=== PATIENT | female | born 1980 | race Caucasian/White ===

== ENCOUNTER 2019-01-11 21:55 | Inpatient (IN) | payer OTHER ==
[2019-01-12] MEDS ORDERED: KETOROLAC TROMETHAMINE 60 MG/2 ML SDV IM ONE (00:47)
[2019-01-12] MEDS ORDERED: OXYCODONE-ACETAMINOPHEN 5-325 MG TABLET PO ONE (00:47)
[2019-01-12] MEDS ORDERED: ONDANSETRON 4 MG TAB.RAPDIS PO ONE (00:47)
--- NOTE | 2019-01-12 00:50 | ER Document Report ---
ED Medical Screen (RME) - General Chief Complaint: Abdominal Pain Stated Complaint: ABDOMINAL AND BACK PAIN Time Seen by Provider: 01/12/19 00:44 Primary Care Provider: CLARI WELCH MD [Primary Care Provider] - Follow up as needed Notes: 38-year-old female chief complaint of sharp pain in her upper mid and right abdomen with radiation to the back, she vomited 4 times. Denies fever. Denies any surgeries or diagnosed medical problems. TRAVEL OUTSIDE OF THE [place] IN LAST 30 DAYS: No - Related Data Allergies/Adverse Reactions: No Known Allergies Allergy (Verified 10/18/14 21:08) Past Medical History - Past Medical History Cardiac Medical History: Denies: Hx Coronary Artery Disease, Hx Heart Attack, Hx Hypercholesterolemia, Hx Hypertension Pulmonary Medical History: Denies: Hx Asthma, Hx Bronchitis, Hx COPD, Hx Pneumonia Neurological Medical History: Denies: Hx Cerebrovascular Accident, Hx Migraine, Hx Seizures GI Medical History: Musculoskeltal Medical History: Denies Hx Arthritis, Denies Hx Musculoskeletal Deformity, Denies Hx Musculoskeletal Trauma Infectious Medical History: Past Surgical History: Denies: Hx Pacemaker - Immunizations Immunizations up to date: Yes Hx Diphtheria, Pertussis, Tetanus Vaccination: Yes Physical Exam - Vital signs Vitals: Temp Pulse Resp BP Pulse Ox 98.3 F 105 H 20 143/82 H 100 01/11/19 22:44 01/11/19 22:44 01/11/19 22:44 01/11/19 22:44 01/11/19 22:44 - Abdominal Tenderness: Tender - Positive Mattson sign, pain extends to the epigastric area, lower abdomen benign Course - Re-evaluation Re-evalutation: Patient uncomfortable in appearance, very tender in the epigastric and right upper quadrant, patient will be kept n.p.o., medicated, work-up pending. I have greeted and performed a rapid initial assessment of this patient. A comprehensive ED assessment and evaluation of the patient, analysis of test results and completion of the medical decision making process will be conducted by additional ED providers. - Vital Signs Vital signs: Temp Pulse Resp BP Pulse Ox 98.3 F 105 H 20 143/82 H 100 01/11/19 22:44 01/11/19 22:44 01/11/19 22:44 01/11/19 22:44 01/11/19 22:44 Doctor's Discharge - Discharge Referrals: CLARI WELCH MD [Primary Care Provider] - Follow up as needed
[2019-01-12 01:51] LABS: ABSOLUTE BASOPHILS # (AUTO) 0.1 10^3/uL (0.0-0.2); ABSOLUTE LYMPHOCYTES (AUTO) 2.4 10^3/uL (0.5-4.7); ABSOLUTE MONOCYTES (AUTO) 0.6 10^3/uL (0.1-1.4); ABSOLUTE NEUT (AUTO) 8.9 10^3/uL (1.7-8.2); BASOPHILS % (AUTO) 0.9 % (0-2); EOSINOPHILS % (AUTO) 0.3 % (0-6); HEMATOCRIT 26.5 % (36.0-47.0); LYMPHOCYTES % (AUTO) 19.8 % (13-45); MEAN CORPUSCULAR HGB CONC 29.7 g/dL (32.0-36.0); MEAN CORPUSCULAR VOLUME 61 fl (80-97); MONOCYTES % (AUTO) 5.4 % (3-13); PLATELET COUNT 375 10^3/uL (150-450); RED BLOOD COUNT 4.38 10^6/uL (3.72-5.28); RED CELL DISTRIBUTION WIDTH 19.9 % (11.5-14.0); SEGMENTED NEUTROPHILS % (AUTO) 73.6 % (42-78); TOTAL CELLS COUNTED % (AUTO) 100 %
[2019-01-12 02:00] LABS: ALANINE AMINOTRANSFERASE 20 U/L (9-52); ALBUMIN 4.8 g/dL (3.5-5.0); ALKALINE PHOSPHATASE 43 U/L (38-126); ANION GAP 12 (5-19); ASPARTATE AMINO TRANSFERASE 24 U/L (14-36); BILIRUBIN,DIRECT 0.2 mg/dL (0.0-0.4); BILIRUBIN,TOTAL 0.5 mg/dL (0.2-1.3); BLOOD UREA NITROGEN 17 mg/dL (7-20); CALCIUM 9.3 mg/dL (8.4-10.2); CARBON DIOXIDE 20 mmol/L (22-30); CHLORIDE 108 mmol/L (98-107); GLUCOSE 119 mg/dL (75-110); POTASSIUM 4.2 mmol/L (3.6-5.0); TOTAL PROTEIN 7.8 g/dL (6.3-8.2)
[2019-01-12 02:12] LABS: HEMOGLOBIN 7.9 g/dL (12.0-15.5)
--- NOTE | 2019-01-12 02:14 | RADIOLOGY REPORT (SQ) ---
CLINICAL HISTORY: epigastric pain and vomiting COMPARISON: None. TECHNIQUE: US ABDOMEN LIMITED on 01/12/2019 12:48 AM CDT FINDINGS: Liver is normal in echotexture. Common bile measures 3 mm. Gallbladder is normally distended without wall thickening or pericholecystic fluid. There are no gallstones. Right kidney measures 9.7 cm without hydronephrosis aorta is not aneurysmal. IMPRESSION: Unremarkable study.
[2019-01-12 02:15] LABS: ANISOCYTOSIS 2+; OVALOCYTES 1+; PLATELET COMMENT ADEQUATE; POIKILOCYTOSIS 1+; POLYCHROMASIA 1+; SPHEROCYTES SLIGHT
[2019-01-12 02:16] LABS: HYPOCHROMASIA 1+
[2019-01-12] MEDS ORDERED: ONDANSETRON 4 MG TAB.RAPDIS ONE (02:35)
[2019-01-12] MEDS ORDERED: NORMAL SALINE 1000 ML 1,000 ML IV ONE ×2 (02:51→06:47)
[2019-01-12] MEDS ORDERED: ONDANSETRON HCL INJ/PF 4 MG/2 ML SDV IV ONE ×2 (02:51→06:47)
[2019-01-12] MEDS ORDERED: HYDROMORPHONE HCL INJ/PF 2 MG/ML AMPULE IV ONE ×3 (02:51→06:47)
[2019-01-12 02:56] LABS: AMORPHOUS SEDIMENT,URINE 1+ /HPF; APPEARANCE,URINE TURBID; BILIRUBIN,URINE NEGATIVE (NEGATIVE); COLOR,URINE YELLOW; GLUCOSE, URINE NEGATIVE (NEGATIVE); KETONES,URINE 20 mg/dL (NEGATIVE); LEUKOCYTE ESTERASE,URINE NEGATIVE (NEGATIVE); NITRITE,URINE NEGATIVE (NEGATIVE); PROTEIN,URINE 30 mg/dL (NEGATIVE); URINE SPECIFIC GRAVITY 1.029; UROBILINOGEN,URINE NEGATIVE mg/dL (<2.0)
--- NOTE | 2019-01-12 06:06 | RADIOLOGY REPORT (SQ) ---
CT abdomen and pelvis with contrast on 01/12/2019 at 5:38 AM CLINICAL INDICATION: Periumbilical abdominal pain, vomiting TECHNIQUE: Multiple axial images are obtained throughout the abdomen and pelvis following the administration of IV and oral contrast. This exam was performed according to our departmental dose-optimization program, which includes automated exposure control, adjustment of the mA and/or kV according to patient size and/or use of iterative reconstruction technique. Total DLP is 584.56 mGy*cm. COMPARISON: None FINDINGS: Abdomen: There is minimal bibasilar atelectasis. Mild periportal edema is noted in the liver. Left renal cysts are noted. Solid abdominal organs are otherwise unremarkable. There is no abdominal adenopathy. There is no free fluid or free air within the abdomen. The abdominal portion of the GI tract is unremarkable. Pelvis: There is dilated loop of small bowel in the mid pelvis with decompressed distal small bowel suggesting an early or partial small bowel obstruction. Transition point is in the midline deep to the umbilicus seen on coronal image 21 and between axial images 46 and 48. Most likely this is related to an adhesion. There is greater than expected free fluid in the pelvis. Pelvic organs appear unremarkable by CT. There is no pelvic adenopathy pelvic portion of the GI tract including the appendix is otherwise unremarkable. No acute bony abnormality is noted. IMPRESSION: 1. Single dilated loop of small bowel in the mid pelvis with apparent transition to decompressed distal small bowel suggesting an early or partial small bowel obstruction. There is greater than expected free fluid in the pelvis likely related to the same etiology. 2. Mild periportal edema in the liver.
--- NOTE | 2019-01-12 06:32 | ER Document Report ---
Entered by BCEKI HERRMANN SCRIBE 01/12/19 0228 Acting as scribe for:HE GONZALEZ DO ED GI/ - General Chief Complaint: Abdominal Pain Stated Complaint: ABDOMINAL AND BACK PAIN Time Seen by Provider: 01/12/19 00:44 Primary Care Provider: CLARI WELCH MD [ACTIVE STAFF] - Follow up as needed Mode of Arrival: Ambulatory Information source: Patient Notes: 38-year-old female who presents to the emergency department today with complaints of abdominal pain with associated right flank pain which began this afternoon at 1600. Pain begins in her right flank and radiates all the way around her abdomen to the front. Patient states that her pain began "all of a sudden" when sitting outside. Patient states she has not had any food since her pain began. Patient complains of nausea but has not had any vomiting. Patient denies any vaginal discharge, recent sick contacts with similar symptoms, usage of control, dysuria, history, or chills. Patient states she does have heavy periods, stating that she frequently soaks through more than 1 pad an hour. TRAVEL OUTSIDE OF THE [place] IN LAST 30 DAYS: No - Related Data Allergies/Adverse Reactions: No Known Allergies Allergy (Verified 10/18/14 21:08) Past Medical History - General Information source: Patient - Social History Smoking Status: Never Smoker Cigarette use (# per day): No Chew tobacco use (# tins/day): No Frequency of alcohol use: None Drug Abuse: None Lives with: Family Family History: None Patient has suicidal ideation: No Patient has homicidal ideation: No - Past Medical History Cardiac Medical History: Pulmonary Medical History: Renal/ Medical History: Reports: Other - Endometriosis GI Medical History: Musculoskeletal Medical History: Infectious Medical History: Past Surgical History: Reports: Other - Endometriosis - Immunizations Immunizations up to date: Yes Hx Diphtheria, Pertussis, Tetanus Vaccination: Yes Review of Systems - Review of Systems Constitutional: denies: Chills, Fever EENT: No symptoms reported Cardiovascular: No symptoms reported Respiratory: No symptoms reported Gastrointestinal: See HPI, Abdominal pain, Nausea Genitourinary: See HPI, Flank pain - right. denies: Dysuria Female Genitourinary: denies: Vaginal discharge Musculoskeletal: No symptoms reported Skin: No symptoms reported Hematologic/Lymphatic: No symptoms reported Neurological/Psychological: No symptoms reported -: Yes All other systems reviewed and negative Physical Exam - Vital signs Vitals: Temp Pulse Resp BP Pulse Ox 98.3 F 105 H 20 143/82 H 100 01/11/19 22:44 01/11/19 22:44 01/11/19 22:44 01/11/19 22:44 01/11/19 22:44 Interpretation: Tachycardic - Notes Notes: PHYSICAL EXAM GENERAL: Alert, interacts well. Appears uncomfortable. HEAD: Normocephalic, atraumatic. EYES: Pupils equal, round, and reactive to light. Extraocular movements intact. ENT: Oral mucosa moist, tongue midline. NECK: Full range of motion. Supple. Trachea midline. LUNGS: Clear to auscultation bilaterally, no wheezes, rales, or rhonchi. No respiratory distress. HEART: Regular rate and rhythm. No murmurs, gallops, or rubs. ABDOMEN: Soft, periumbilical tenderness with palpation. Non-distended. Bowel sounds present in all 4 quadrants. No guarding, rigidity, or rebound. BACK: Right CVA tenderness to percussion. EXTREMITIES: Moves all 4 extremities spontaneously. No edema, radial and dorsalis pedis pulses 2/4 bilaterally. No cyanosis. NEUROLOGICAL: Alert and oriented x3. Normal speech. PSYCH: Normal affect, normal mood. SKIN: Warm, dry, normal turgor. No rashes or lesions noted. Course - Re-evaluation Re-evalutation: 01/12/19 05:50 CBC shows leukocytosis with a blood cell count of 12.0, anemia with hemoglobin 7.9, this is markedly different from 4 years ago however I do not have any CBC after that, it is consistent with her history of endometriosis and very heavy periods, CO2 slightly low at 20 otherwise unremarkable, lipase normal, test negative, urinalysis shows small blood but no real signs of infection. Abdominal ultrasound is unremarkable. Given her leukocytosis and persistent pain patient is sent for CT scan of the abdomen and pelvis. Patient's nausea was treated with Zofran, hydrated with a liter of normal saline, pain was treated with Dilaudid 0.5 mg twice. 01/12/19 06:45 CT scan with IV and oral contrast shows early partial SBO, this will be treated with NG tube and was discussed with Dr. Manley who agreed to consult on the patient and then asked that hospitalist admit her. Dr. Jones accepted the patient on behalf of the day team. 01/12/19 06:47 suspect the SBO is related to adhesions from her endometriosis. - Vital Signs Vital signs: Temp Pulse Resp BP Pulse Ox 98.5 F 100 20 99/44 L 100 01/12/19 02:29 01/12/19 02:29 01/12/19 02:29 01/12/19 02:29 01/12/19 02:29 - Laboratory Result Diagrams: 01/12/19 01:25 01/12/19 01:25 Laboratory results interpreted by me: 01/12/19 01/12/19 01/12/19 01:25 01:25 01:25 WBC 12.0 H Hgb 7.9 L Hct 26.5 L MCV 61 L MCH 18.0 L MCHC 29.7 L RDW 19.9 H Absolute Neutrophils 8.9 H Chloride 108 H Carbon Dioxide 20 L Glucose 119 H Urine Protein 30 H Urine Ketones 20 H Urine Blood SMALL H Discharge - Discharge Clinical Impression: Partial small bowel obstruction Condition: Stable Disposition: ADMITTED INPATIENT Admitting Provider: Robert (Hospitalist) Unit Admitted: Medical Floor I personally performed the services described in the documentation, reviewed and edited the documentation which was dictated to the scribe in my presence, and it accurately records my words and actions.
--- NOTE | 2019-01-12 07:38 | PDOC CONSULTATION ---
Consultation Consult Date: 01/12/19 Provider Consulted: SEDRICK MCMANUS Consult reason:: SBO History of Present Illness Admission Date/PCP: 01/12/19 07:09 RAGHAV BESS MD History of Present Illness: SARI PAUL is a 38 year old female with history of endometriosis c/o RUQ pains yesterday at 4 pm associated with nausea/vomiting. Went to ED last night where a CT scan of abdomen showed partial small bowel obstruction. Last BM was 2 pm yesterday. Had 3 laparoscopic procedures for endometriosis with lysis of adhesions per patient and last done 6 years ago. Past Medical History Cardiac Medical History: Denies: Coronary Artery Disease, Myocardial Infarction, Hyperlipidema, Hypertension Pulmonary Medical History: Denies: Asthma, Bronchitis, Chronic Obstructive Pulmonary Disease (COPD), Pneumonia Neurological Medical History: Denies: Migraine, Seizures Renal/ Medical History: Reports: Other - Endometriosis GI Medical History: Musculoskeltal Medical History: Denies: Arthritis Hematology: Denies: Anemia Past Surgical History Past Surgical History: Reports: Other - Endometriosis Denies: Pacemaker Social History Lives with: Family Smoking Status: Never Smoker Hx Recreational Drug Use: No Family History Family History: None Parental Family History Reviewed: Yes Children Family History Reviewed: No Sibling(s) Family History Reviewed.: No Medication/Allergy Home Medications: Cephalexin Monohydrate [Keflex 250 mg Capsule] 250 mg PO Q8 #30 capsule 10/19/14 Hydrocodone/Acetaminophen [[place] 5-325 mg Tabs #6 ER Disp] 6 tab PO ASDIR PRN #0 dspk 10/19/14 Allergies/Adverse Reactions: No Known Allergies Allergy (Verified 10/18/14 21:08) Review of Systems Constitutional: PRESENT: as per HPI, other - service attendant cafeteria fever/chills. Physical Exam Vital Signs: Temp Pulse Resp BP Pulse Ox 98.5 F 100 20 99/44 L 100 01/12/19 02:29 01/12/19 02:29 01/12/19 02:29 01/12/19 02:29 01/12/19 02:29 Intake & Output 01/11/19 01/12/19 01/13/19 06:59 06:59 06:59 Intake Total 1000 Balance 1000 Weight 58.6 kg General appearance: PRESENT: mild distress Head exam: PRESENT: atraumatic Eye exam: PRESENT: conjunctiva pink Mouth exam: PRESENT: moist Neck exam: PRESENT: full ROM Respiratory exam: PRESENT: clear to auscultation bethany Cardiovascular exam: PRESENT: RRR Pulses: PRESENT: normal radial pulses Vascular exam: PRESENT: normal capillary refill GI/Abdominal exam: PRESENT: soft, tenderness - RUQ Rectal exam: PRESENT: deferred Extremities exam: PRESENT: full ROM Musculoskeletal exam: PRESENT: ambulatory Neurological exam: PRESENT: alert, oriented to person, oriented to place, oriented to time, oriented to situation Psychiatric exam: PRESENT: appropriate affect Skin exam: PRESENT: normal color, warm Results Laboratory Results: 01/12/19 01:25 01/12/19 01:25 01/12/19 01/12/19 01/12/19 01:25 01:25 01:25 WBC 12.0 H RBC 4.38 Hgb 7.9 L Hct 26.5 L MCV 61 L MCH 18.0 L MCHC 29.7 L RDW 19.9 H Plt Count 375 Seg Neutrophils % 73.6 Lymphocytes % 19.8 Monocytes % 5.4 Eosinophils % 0.3 Basophils % 0.9 Absolute Neutrophils 8.9 H Absolute Lymphocytes 2.4 Absolute Monocytes 0.6 Absolute Eosinophils 0.0 Absolute Basophils 0.1 Sodium 139.7 Potassium 4.2 Chloride 108 H Carbon Dioxide 20 L Anion Gap 12 BUN 17 Creatinine 0.55 Est GFR ( Amer) > 60 Est GFR (Non-Af Amer) > 60 Glucose 119 H Calcium 9.3 Total Bilirubin 0.5 AST 24 ALT 20 Alkaline Phosphatase 43 Total Protein 7.8 Albumin 4.8 Lipase 180.4 Serum HCG, Qual NEGATIVE Urine Color Urine Appearance Urine pH Ur Specific [place] Urine Protein Urine Glucose (UA) Urine Ketones Urine Blood Urine Nitrite Ur Leukocyte Esterase Urine WBC (Auto) Urine RBC (Auto) 01/12/19 01:25 WBC RBC Hgb Hct MCV MCH MCHC RDW Plt Count Seg Neutrophils % Lymphocytes % Monocytes % Eosinophils % Basophils % Absolute Neutrophils Absolute Lymphocytes Absolute Monocytes Absolute Eosinophils Absolute Basophils Sodium Potassium Chloride Carbon Dioxide Anion Gap BUN Creatinine Est GFR ( Amer) Est GFR (Non-Af Amer) Glucose Calcium Total Bilirubin AST ALT Alkaline Phosphatase Total Protein Albumin Lipase Serum HCG, Qual Urine Color YELLOW Urine Appearance TURBID Urine pH 5.0 Ur Specific [place] 1.029 Urine Protein 30 H Urine Glucose (UA) NEGATIVE Urine Ketones 20 H Urine Blood SMALL H Urine Nitrite NEGATIVE Ur Leukocyte Esterase NEGATIVE Urine WBC (Auto) 40 Urine RBC (Auto) 5 Impressions: Abdomen/Pelvis CT 01/12/19 00:00 IMPRESSION: 1. Single dilated loop of small bowel in the mid pelvis with apparent transition to decompressed distal small bowel suggesting an early or partial small bowel obstruction. There is greater than expected free fluid in the pelvis likely related to the same etiology. 2. Mild periportal edema in the liver. Abdomen Ultrasound 01/12/19 00:48 IMPRESSION: Unremarkable study. Assessment & Plan - Time Time Spent: 30 to 50 Minutes - Inpatient Certification Medical Necessity: Need For IV Fluids, Need for Pain Control, Risk of Complication if Not Cared For in Hospital - Plan Summary Plan Summary: NGT Hydrate Pain mx
[2019-01-12] MEDS ORDERED: GLUCAGON,HUMAN RECOMB 1 MG INJ SUBCUT PRN (07:47)
[2019-01-12] MEDS ORDERED: DEXTROSE 40% GEL 15 GM TUBE PO PRN ×2 (07:47)
[2019-01-12] MEDS ORDERED: ONDANSETRON HCL INJ/PF 4 MG/2 ML SDV IV PRN (07:47)
[2019-01-12] MEDS ORDERED: DEXTROSE 50%-WATER 25 GM/50 ML DISP.SYRIN IV PRN ×2 (07:47)
--- NOTE | 2019-01-12 07:53 | Progress Note Acknowledgement ---
Progress Note Acknowledgement Progess Note Acknowledgement: I, the undersigned member of the medical staff with appropriate privileges and with supervisory authority over [Royce Poole], a dependent practice allied health professional, acknowledge that I have reviewed the progress notes entered on this patient, and in my professional judgment believe that the assessment made and/or any care evidenced was appropriate
--- NOTE | 2019-01-12 07:59 | PDOC H&P ---
History of Present Illness Admission Date/PCP: 01/12/19 07:09 RAGHAV BESS MD Patient complains of: Abdominal pain History of Present Illness: SARI PAUL is a 38 year old female who presents to the ER with at least 24 hours of increased abdominal pain. Patient states his pain is diffuse in nature and is worse on palpation more so than rebound. Patient states some associated nausea although she states she has not vomited. She does have a history of endometriosis but no other family or medical history of her own. She had no treatment prior to arrival all oral intake been aggravating factor. Past Medical History Cardiac Medical History: Denies: Coronary Artery Disease, Myocardial Infarction, Hyperlipidema, H ypertension Pulmonary Medical History: Denies: Asthma, Bronchitis, Chronic Obstructive Pulmonary Disease (COPD), Pneumonia Neurological Medical History: Denies: Migraine, Seizures Renal/ Medical History: Reports: Other - Endometriosis GI Medical History: Musculoskeltal Medical History: Denies: Arthritis Hematology: Denies: Anemia Past Surgical History Past Surgical History: Reports: Other - Endometriosis Denies: Pacemaker Social History Information Source: Patient Lives with: Family Smoking Status: Never Smoker Frequency of Alcohol Use: None Hx Recreational Drug Use: No Hx Prescription Drug Abuse: No - Advance Directive Resuscitation Status: Full Code Family History Family History: DM Parental Family History Reviewed: Yes Children Family History Reviewed: Yes Sibling(s) Family History Reviewed.: Yes Medication/Allergy Home Medications: Cephalexin Monohydrate [Keflex 250 mg Capsule] 250 mg PO Q8 #30 capsule 10/19/14 Hydrocodone/Acetaminophen [[place] 5-325 mg Tabs #6 ER Disp] 6 tab PO ASDIR PRN #0 dspk 10/19/14 Allergies/Adverse Reactions: No Known Allergies Allergy (Verified 10/18/14 21:08) Review of Systems Constitutional: ABSENT: chills, fever(s), headache(s), weight gain, weight loss Eyes: ABSENT: visual disturbances Ears: ABSENT: hearing changes Cardiovascular: ABSENT: chest pain, dyspnea on exertion, edema, orthropnea, palpitations Respiratory: ABSENT: cough, hemoptysis Gastrointestinal: PRESENT: abdominal pain, nausea. ABSENT: constipation, diarrhea, hematemesis, hematochezia, vomiting Genitourinary: ABSENT: dysuria, hematuria Musculoskeletal: ABSENT: joint swelling Integumentary: ABSENT: rash, wounds Neurological: ABSENT: abnormal gait, abnormal speech, confusion, dizziness, focal weakness, syncope Psychiatric: ABSENT: anxiety, depression, homidical ideation, suicidal ideation Endocrine: ABSENT: cold intolerance, heat intolerance, polydipsia, polyuria Hematologic/Lymphatic: ABSENT: easy bleeding, easy bruising Physical Exam Vital Signs: Temp Pulse Resp BP Pulse Ox 98.5 F 100 20 99/44 L 100 01/12/19 02:29 01/12/19 02:29 01/12/19 02:29 01/12/19 02:29 01/12/19 02:29 Intake & Output 01/11/19 01/12/19 01/13/19 06:59 06:59 06:59 Intake Total 1000 Balance 1000 Weight 58.6 kg General appearance: PRESENT: no acute distress, well-developed, well-nourished Head exam: PRESENT: atraumatic, normocephalic Eye exam: PRESENT: conjunctiva pink, EOMI, PERRLA. ABSENT: scleral icterus Ear exam: PRESENT: normal external ear exam Mouth exam: PRESENT: moist, tongue midline Neck exam: ABSENT: carotid bruit, JVD, lymphadenopathy, thyromegaly Respiratory exam: PRESENT: clear to auscultation bethany. ABSENT: rales, rhonchi, wheezes Cardiovascular exam: PRESENT: RRR. ABSENT: diastolic murmur, rubs, systolic murmur Pulses: PRESENT: normal dorsalis pedis pul Vascular exam: PRESENT: normal capillary refill GI/Abdominal exam: PRESENT: guarding - Absent bowel sounds, soft, tenderness. ABSENT: distended, mass, organolmegaly, rebound Rectal exam: PRESENT: deferred Extremities exam: PRESENT: full ROM. ABSENT: calf tenderness, clubbing, pedal edema Neurological exam: PRESENT: alert, awake, oriented to person, oriented to place, oriented to time, oriented to situation, CN II-XII grossly intact. ABSENT: motor sensory deficit Psychiatric exam: PRESENT: appropriate affect, normal mood. ABSENT: homicidal ideation, suicidal ideation Skin exam: PRESENT: dry, intact, warm. ABSENT: cyanosis, rash Results Laboratory Results: 01/12/19 01:25 01/12/19 01:25 01/12/19 01/12/19 01/12/19 01:25 01:25 01:25 WBC 12.0 H RBC 4.38 Hgb 7.9 L Hct 26.5 L MCV 61 L MCH 18.0 L MCHC 29.7 L RDW 19.9 H Plt Count 375 Seg Neutrophils % 73.6 Lymphocytes % 19.8 Monocytes % 5.4 Eosinophils % 0.3 Basophils % 0.9 Absolute Neutrophils 8.9 H Absolute Lymphocytes 2.4 Absolute Monocytes 0.6 Absolute Eosinophils 0.0 Absolute Basophils 0.1 Sodium 139.7 Potassium 4.2 Chloride 108 H Carbon Dioxide 20 L Anion Gap 12 BUN 17 Creatinine 0.55 Est GFR ( Amer) > 60 Est GFR (Non-Af Amer) > 60 Glucose 119 H Calcium 9.3 Total Bilirubin 0.5 AST 24 ALT 20 Alkaline Phosphatase 43 Total Protein 7.8 Albumin 4.8 Lipase 180.4 Serum HCG, Qual NEGATIVE Urine Color Urine Appearance Urine pH Ur Specific [place] Urine Protein Urine Glucose (UA) Urine Ketones Urine Blood Urine Nitrite Ur Leukocyte Esterase Urine WBC (Auto) Urine RBC (Auto) 01/12/19 01:25 WBC RBC Hgb Hct MCV MCH MCHC RDW Plt Count Seg Neutrophils % Lymphocytes % Monocytes % Eosinophils % Basophils % Absolute Neutrophils Absolute Lymphocytes Absolute Monocytes Absolute Eosinophils Absolute Basophils Sodium Potassium Chloride Carbon Dioxide Anion Gap BUN Creatinine Est GFR ( Amer) Est GFR (Non-Af Amer) Glucose Calcium Total Bilirubin AST ALT Alkaline Phosphatase Total Protein Albumin Lipase Serum HCG, Qual Urine Color YELLOW Urine Appearance TURBID Urine pH 5.0 Ur Specific [place] 1.029 Urine Protein 30 H Urine Glucose (UA) NEGATIVE Urine Ketones 20 H Urine Blood SMALL H Urine Nitrite NEGATIVE Ur Leukocyte Esterase NEGATIVE Urine WBC (Auto) 40 Urine RBC (Auto) 5 Impressions: Abdomen/Pelvis CT 01/12/19 00:00 IMPRESSION: 1. Single dilated loop of small bowel in the mid pelvis with apparent transition to decompressed distal small bowel suggesting an early or partial small bowel obstruction. There is greater than expected free fluid in the pelvis likely related to the same etiology. 2. Mild periportal edema in the liver. Abdomen Ultrasound 01/12/19 00:48 IMPRESSION: Unremarkable study. Assessment and Plan - Diagnosis (1) Partial small bowel obstruction Is this a current diagnosis for this admission?: Yes Plan: 01/12/2019-at this time admit to medical surgical. N.p.o. NG tube to low wall intermittent suction. IV fluids normal saline 100 mL an hour. Dilaudid 1 mg IV every 2 hours as needed pain and Zofran 4 mg IV every 4 hours as needed nausea and vomiting. We will continue to follow make change plan of care as appropriate. Will follow up with patient is having bowel sounds and passing flatulence we will start on clear liquids and advance as tolerated. (2) Anemia Qualifiers: Anemia type: iron deficiency Is this a current diagnosis for this admission?: Yes Plan: [id number] likely secondary to iron deficiency as patient has a MCV of 69. Will obtain iron study and give Ferrlecit and oral iron once patient sta ble to take p.o. (3) Abdominal pain Qualifiers: Abdominal location: generalized Qualified Code(s): R10.84 - Generalized abdominal pain Is this a current diagnosis for this admission?: Yes Plan: 01/12/2019-Dilaudid 1 mg IV every 2 hours as needed pain titrate as necessary. (4) Hyperglycemia Is this a current diagnosis for this admission?: Yes Plan: 01/12/2019-resting blood sugar 119. Patient unable to take oral intake. Will obtain A1c to determine if patient does have any form of diabetes. - Time Time Spent with patient: 35 or more minutes Anticipated discharge: Home Within: within 72 hours - Inpatient Certification Based on my medical assessment, after consideration of the patient's comorbidities, presenting symptoms, or acuity I expect that the services needed warrant INPATIENT care.: Yes I certify that my determination is in accordance with my understanding of Medicare's requirements for reasonable and necessary INPATIENT services [42 CFR 412.3e].: Yes Medical Necessity: Other - IV fluids, IV pain medication, NG tube.
[2019-01-12] MEDS ORDERED: PHARMACY COMMUNICATION ORDER MC NR (08:00)
--- NOTE | 2019-01-12 08:01 | ADVANCED CARE ---
- Diagnosis (1) Partial small bowel obstruction Diagnosis Current: Yes (2) Anemia Diagnosis Current: Yes (3) Abdominal pain Diagnosis Current: Yes (4) Hyperglycemia Diagnosis Current: Yes Attendance: Patient and myself Resuscitation Status: Full Code Discussion: 01/12/2019-discussion between myself and patient about small bowel obstruction. Need for NG tube for bowel rest and decompression. Pain management with Dilaudid and nausea/vomiting control with antiemetics. IV fluids. Also patient is severely anemic most likely iron deficiency. Will obtain iron study and treat as appropriate. Care Planning Goals: 1-resolution of small bowel obstruction with NG tube 2-pain control 3-antiemetics 4-iron study-treat iron deficiency as needed. Time Spent: 15 minutes
[2019-01-12 08:13] LABS: ABSOLUTE RETICS # 0.043 10^6/uL (0.028-0.122); RETICULOCYTE COUNT (AUTO) 0.97 % (0.66-2.85)
[2019-01-12 08:54] LABS: FERRITIN 2.74 ng/mL (6.2-137.0)
[2019-01-12 09:37] LABS: IRON(TIBC) < 10.1 ug/dL (37-170)
--- NOTE | 2019-01-12 09:58 | RADIOLOGY REPORT (SQ) ---
EXAM DESCRIPTION: KUB/ABDOMEN (SINGLE VIEW) COMPLETED DATE/TIME: 01/12/2019 9:43 am REASON FOR STUDY: Check Placement of NG Tube COMPARISON: None. FINDINGS: Single limited image of the upper abdomen and lower chest obtained. Nasogastric tube has its tip within the stomach. The side-hole however lies in the distal esophagus. This should be advanced further into the stomach. TECHNICAL DOCUMENTATION: JOB ID: [id number] Reading location - IP/workstation name: [email or web address]
[2019-01-12] MEDS: PANTOPRAZOLE SODIUM 40 MG VIAL IV SCH (11:05)
[2019-01-12] MEDS: NORMAL SALINE 1000 ML 1,000 ML IV PRN ×2 (13:20→23:40)
[2019-01-12] MEDS: HYDROMORPHONE HCL INJ/PF 2 MG/ML AMPULE IV PRN ×2 (15:19→23:39)
[2019-01-12] MEDS ORDERED: PHENOL/SODIUM PHENOLATE 100 SPRAY/177 ML BOTTLE PO PRN (18:40)
[2019-01-12] MEDS ORDERED: PHENOL/SODIUM PHENOLATE 100 SPRAY/177 ML BOTTLE ONE (18:56)
[2019-01-13 05:02] LABS: ABSOLUTE BASOPHILS # (AUTO) 0.1 10^3/uL (0.0-0.2); ABSOLUTE EOSINOPHILS # (AUTO) 0.2 10^3/uL (0.0-0.6); ABSOLUTE LYMPHOCYTES (AUTO) 3.1 10^3/uL (0.5-4.7); ABSOLUTE MONOCYTES (AUTO) 1.1 10^3/uL (0.1-1.4); ABSOLUTE NEUT (AUTO) 7.6 10^3/uL (1.7-8.2); BASOPHILS % (AUTO) 0.9 % (0-2); EOSINOPHILS % (AUTO) 1.5 % (0-6); HEMATOCRIT 25.3 % (36.0-47.0); LYMPHOCYTES % (AUTO) 25.5 % (13-45); MEAN CORPUSCULAR HEMOGLOBIN 18.1 pg (27.0-33.4); MEAN CORPUSCULAR HGB CONC 29.2 g/dL (32.0-36.0); PLATELET COUNT 329 10^3/uL (150-450); RED CELL DISTRIBUTION WIDTH 20.4 % (11.5-14.0); SEGMENTED NEUTROPHILS % (AUTO) 63.1 % (42-78); TOTAL CELLS COUNTED % (AUTO) 100 %; WHITE BLOOD COUNT 12.1 10^3/uL (4.0-10.5)
[2019-01-13 05:09] LABS: HEMOGLOBIN 7.4 g/dL (12.0-15.5)
[2019-01-13 05:23] LABS: ANISOCYTOSIS 4+; HYPOCHROMASIA 2+; OVALOCYTES 1+; POLYCHROMASIA SLIGHT; SCHISTOCYTES SLIGHT
[2019-01-13 05:24] LABS: PLATELET COMMENT ADEQUATE; TARGET CELLS SLIGHT
[2019-01-13 05:27] LABS: ANION GAP 9 (5-19); BLOOD UREA NITROGEN 10 mg/dL (7-20); CALCIUM 8.1 mg/dL (8.4-10.2); CARBON DIOXIDE 19 mmol/L (22-30); CHLORIDE 113 mmol/L (98-107); GLUCOSE 76 mg/dL (75-110); PHOSPHORUS 3.1 mg/dL (2.5-4.5); POTASSIUM 3.6 mmol/L (3.6-5.0)
[2019-01-13] MEDS ORDERED: FERRIC CARBOXYMALTOSE INJ 750 MG/15 ML VIAL IV STA (08:06)
--- NOTE | 2019-01-13 08:15 | PDOC PROGRESS REPORT ---
Subjective Progress Note for:: 01/13/19 Subjective:: Discomfort with NG tube Reason For Visit: SBO Physical Exam Vital Signs: Temp Pulse Resp BP Pulse Ox 98.2 F 75 16 122/63 95 01/13/19 04:09 01/13/19 04:09 01/13/19 04:09 01/13/19 04:09 01/13/19 04:09 Intake & Output 01/12/19 01/13/19 01/14/19 06:59 06:59 06:59 Intake Total 1000 1000 Output Total 160 Balance 1000 840 Weight 58.6 kg 59.2 kg General appearance: PRESENT: no acute distress, well-developed, well-nourished Head exam: PRESENT: atraumatic, normocephalic Eye exam: PRESENT: conjunctiva pink, EOMI, PERRLA. ABSENT: scleral icterus Ear exam: PRESENT: normal external ear exam Mouth exam: PRESENT: moist, tongue midline Neck exam: ABSENT: carotid bruit, JVD, lymphadenopathy, thyromegaly Respiratory exam: PRESENT: clear to auscultation bethany. ABSENT: rales, rhonchi, wheezes Cardiovascular exam: PRESENT: RRR. ABSENT: diastolic murmur, rubs, systolic murmur Pulses: PRESENT: normal dorsalis pedis pul Vascular exam: PRESENT: normal capillary refill GI/Abdominal exam: PRESENT: soft. ABSENT: distended, guarding, mass, organolmegaly, rebound, tenderness Rectal exam: PRESENT: deferred Extremities exam: PRESENT: full ROM. ABSENT: calf tenderness, clubbing, pedal edema Neurological exam: PRESENT: alert, awake, oriented to person, oriented to place, oriented to time, oriented to situation, CN II-XII grossly intact. ABSENT: motor sensory deficit Psychiatric exam: PRESENT: appropriate affect, normal mood. ABSENT: homicidal ideation, suicidal ideation Skin exam: PRESENT: dry, intact, warm. ABSENT: cyanosis, rash Results Laboratory Results: 01/13/19 04:44 01/13/19 04:44 01/12/19 01/12/19 01/13/19 01:25 01:25 04:44 WBC 12.1 H RBC 4.10 Hgb 7.4 L Hct 25.3 L MCV 62 L MCH 18.1 L MCHC 29.2 L RDW 20.4 H Plt Count 329 Seg Neutrophils % 63.1 Lymphocytes % 25.5 Monocytes % 9.0 Eosinophils % 1.5 Basophils % 0.9 Absolute Neutrophils 7.6 Absolute Lymphocytes 3.1 Absolute Monocytes 1.1 Absolute Eosinophils 0.2 Absolute Basophils 0.1 Retic Count (auto) 0.97 Absolute Retic 0.043 Sodium Potassium Chloride Carbon Dioxide Anion Gap BUN Creatinine Est GFR ( Amer) Est GFR (Non-Af Amer) Glucose Calcium Phosphorus Magnesium Iron < 10.1 L TIBC 444 % Saturation UNABLE TO CALCULATE Ferritin 2.74 L Vitamin B12 342.0 Folate 14.00 01/13/19 04:44 WBC RBC Hgb Hct MCV MCH MCHC RDW Plt Count Seg Neutrophils % Lymphocytes % Monocytes % Eosinophils % Basophils % Absolute Neutrophils Absolute Lymphocytes Absolute Monocytes Absolute Eosinophils Absolute Basophils Retic Count (auto) Absolute Retic Sodium 140.8 Potassium 3.6 Chloride 113 H Carbon Dioxide 19 L Anion Gap 9 BUN 10 Creatinine 0.59 Est GFR ( Amer) > 60 Est GFR (Non-Af Amer) > 60 Glucose 76 Calcium 8.1 L Phosphorus 3.1 Magnesium 2.0 Iron TIBC % Saturation Ferritin Vitamin B12 Folate Impressions: Abdomen/Pelvis CT 01/12/19 00:00 IMPRESSION: 1. Single dilated loop of small bowel in the mid pelvis with apparent transition to decompressed distal small bowel suggesting an early or partial small bowel obstruction. There is greater than expected free fluid in the pelvis likely related to the same etiology. 2. Mild periportal edema in the liver. Abdomen Ultrasound 01/12/19 00:48 IMPRESSION: Unremarkable study. Assessment and Plan - Diagnosis (1) Partial small bowel obstruction Is this a current diagnosis for this admission?: Yes Plan: 01/12/2019-at this time admit to medical surgical. N.p.o. NG tube to low wall intermittent suction. IV fluids normal saline 100 mL an hour. Dilaudid 1 mg IV every 2 hours as needed pain and Zofran 4 mg IV every 4 hours as needed nausea and vomiting. We will continue to follow make change plan of care as appropriate. Will follow up with patient is having bowel sounds and passing flatulence we will start on clear liquids and advance as tolerated. 01/13/2019-no bowel sounds at this time. N.p.o. NG tube low wall suction. Continue normal saline 100 and hour. Continue Dilaudid as needed. (2) Anemia Qualifiers: Anemia type: iron deficiency Is this a current diagnosis for this admission?: Yes Plan: 01/[id number] likely secondary to iron deficiency as patient has a MCV of 69. Will obtain iron study and give Ferrlecit and oral iron once patient stable to take p.o. 01/13/2019-iron studies come back showing extreme iron deficiency anemia. I will give patient 750 mg of ferrous carboxymaltase at this time. Once patient is taking oral we will start her on ferrous sulfate 305 g p.o. twice daily. (3) Abdominal pain Qualifiers: Abdominal location: generalized Qualified Code(s): R10.84 - Generalized abdominal pain Is this a current diagnosis for this admission?: Yes Plan: 01/12/2019-Dilaudid 1 mg IV every 2 hours as needed pain titrate as necessary. 01/13/2019-improved. Continue Dilaudid as needed. (4) Hyperglycemia Is this a current diagnosis for this admission?: Yes Plan: 01/12/2019-resting blood sugar 119. Patient unable to take oral intake. Will obtain A1c to determine if patient does have any form of diabetes. 01/13/2019-A1c 5.6. No diabetes. Continue to follow - Time Time Spent with patient: 15-24 minutes - Inpatient Certification Based on my medical assessment, after consideration of the patient's comorbidities, presenting symptoms, or acuity I expect that the services needed warrant INPATIENT care.: Yes I certify that my determination is in accordance with my understanding of Medicare's requirements for reasonable and necessary INPATIENT services [42 CFR 412.3e].: Yes Medical Necessity: Other - IV hydration, NG tube, IV pain medication
[2019-01-13] MEDS: HYDROMORPHONE HCL INJ/PF 2 MG/ML AMPULE IV PRN (09:06)
[2019-01-13] MEDS: PANTOPRAZOLE SODIUM 40 MG VIAL IV SCH (09:06)
[2019-01-13] MEDS: NORMAL SALINE 1000 ML 1,000 ML IV PRN ×2 (09:12→21:18)
--- NOTE | 2019-01-13 10:34 | RADIOLOGY REPORT (SQ) ---
EXAM DESCRIPTION: KUB/ABDOMEN (SINGLE VIEW) COMPLETED DATE/TIME: 01/13/2019 10:25 am REASON FOR STUDY: SBO COMPARISON: CT scan 01/12/2019 NUMBER OF VIEWS: One view. TECHNIQUE: Supine radiographic image of the abdomen acquired. LIMITATIONS: None. FINDINGS: BOWEL GAS PATTERN: Normal bowel gas pattern. No dilated loops. Contrast to the distributi on of the colon. CALCIFICATIONS: No suspicious calcifications. SOFT TISSUES: No gross mass or suggestion of organomegaly. HARDWARE: None in the abdomen. BONES: No acute fracture. No worrisome bone lesions. OTHER: No other significant finding. IMPRESSION: NO RADIOGRAPHIC EVIDENCE FOR ACUTE ABDOMINAL DISEASE. Contrast through the distribution of the colon. TECHNICAL DOCUMENTATION: JOB ID: [id number] [employer]- All Rights Reserved Reading location - IP/workstation name: [email or web address]
[2019-01-13] MEDS ORDERED: FERRIC CARBOXYMALTOSE 750 MG in NORMAL SALINE 250 ML IV ONE (11:00)
[2019-01-14 05:27] LABS: ABSOLUTE BASOPHILS # (AUTO) 0.1 10^3/uL (0.0-0.2); ABSOLUTE EOSINOPHILS # (AUTO) 0.4 10^3/uL (0.0-0.6); ABSOLUTE LYMPHOCYTES (AUTO) 1.8 10^3/uL (0.5-4.7); ABSOLUTE MONOCYTES (AUTO) 1.4 10^3/uL (0.1-1.4); ABSOLUTE NEUT (AUTO) 8.1 10^3/uL (1.7-8.2); BASOPHILS % (AUTO) 0.7 % (0-2); HEMATOCRIT 23.7 % (36.0-47.0); LYMPHOCYTES % (AUTO) 15.6 % (13-45); MEAN CORPUSCULAR HEMOGLOBIN 17.7 pg (27.0-33.4); MEAN CORPUSCULAR HGB CONC 29.1 g/dL (32.0-36.0); MEAN CORPUSCULAR VOLUME 61 fl (80-97); MONOCYTES % (AUTO) 11.6 % (3-13); PLATELET COUNT 254 10^3/uL (150-450); RED BLOOD COUNT 3.91 10^6/uL (3.72-5.28); RED CELL DISTRIBUTION WIDTH 20.2 % (11.5-14.0); SEGMENTED NEUTROPHILS % (AUTO) 69.1 % (42-78); TOTAL CELLS COUNTED % (AUTO) 100 %; WHITE BLOOD COUNT 11.8 10^3/uL (4.0-10.5)
[2019-01-14 05:33] LABS: HEMOGLOBIN 6.9 g/dL (12.0-15.5)
[2019-01-14 05:44] LABS: OVALOCYTES SLIGHT; POLYCHROMASIA SLIGHT; SCHISTOCYTES SLIGHT; TARGET CELLS 1+
[2019-01-14 05:45] LABS: ANISOCYTOSIS 3+; PLATELET COMMENT ADEQUATE
[2019-01-14 05:47] LABS: ANION GAP 9 (5-19); BLOOD UREA NITROGEN 5 mg/dL (7-20); CARBON DIOXIDE 21 mmol/L (22-30); CHLORIDE 110 mmol/L (98-107); POTASSIUM 3.4 mmol/L (3.6-5.0)
[2019-01-14 06:10] LABS: GLUCOSE 67 mg/dL (75-110)
[2019-01-14] MEDS ORDERED: POTASSIUM CHLORIDE 10 MEQ CAPSULE.ER PO ONE (06:42)
--- NOTE | 2019-01-14 08:39 | PDOC DISCHARGE SUMMARY ---
General - Admit/Disc Date/PCP Admission Date/Primary Care Provider: 01/12/19 07:09 RAGHAV BESS MD Discharge Date: 01/14/19 - Discharge Diagnosis (1) Partial small bowel obstruction Is this a current diagnosis for this admission?: Yes (2) Anemia Is this a current diagnosis for this admission?: Yes (3) Abdominal pain Is this a current diagnosis for this admission?: Yes (4) Hyperglycemia Is this a current diagnosis for this admission?: Yes - Additional Information Resuscitation Status: Full Code Discharge Diet: As Tolerated Discharge Activity: Activity As Tolerated Prescriptions: Ferrous Sulfate 325 mg PO BID 30 Days #60 tablet. Home Medications: Ferrous Sulfate 325 mg PO BID 30 Days #60 tablet. 01/14/19 History of Present Illness Patient complains of: No complaints this a.m. History of Present Illness: SARI POOLE is a 38 year old female who presents to the ER with at least 24 hours of increased abdominal pain. Patient states his pain is diffuse in nature and is worse on palpation more so than rebound. Patient states some associated nausea although she states she has not vomited. She does have a history of endometriosis but no other family or medical history of her own. She had no treatment prior to arrival all oral intake been aggravating factor. Hospital Course Hospital Course: Ms. Poole was admitted to the hospital with NG tube in place. Patient was allowed bowel rest for 2 days and decompression with NG tube. Patient still complete resolution of her small bowel obstruction. Patient was hydrated with normal saline over the course of time. Patient was found to have severe iron deficiency anemia and was given iron intravenously and placed on consultation on outpatient basis. Patient has a low hemoglobin but his astigmatic this time no hypotension no tachycardia. Patient has slight shortness of breath on ambulation by psych this is from being in bed for several days with NG tube and nonambulatory. I will give patient incentive spirometry to take home. Patient will follow up with her primary care in the next 2 days and she will present with a stool sample for testing for guaiac positive or not. I doubt that she has guaiac positive stool at this time but we will check just to make sure. Patient also follow-up with [facility] to get medications for her heavy menstrual cycles. Patient educated to reinduce foods slowly and to report any adverse effects. Patient and family in agreement with plan of care. Physical Exam Vital Signs: Temp Pulse Resp BP Pulse Ox 98.3 F 76 16 110/59 L 98 01/14/19 07:58 01/14/19 07:58 01/14/19 03:17 01/14/19 07:58 01/14/19 07:58 Intake & Output 01/13/19 01/14/19 01/15/19 06:59 06:59 06:59 Intake Total 1000 2273 Output Total 160 Balance 840 2273 Weight 59.2 kg 57.9 kg General appearance: PRESENT: no acute distress, well-developed, well-nourished Head exam: PRESENT: atraumatic, normocephalic Eye exam: PRESENT: conjunctiva pink, EOMI, PERRLA. ABSENT: scleral icterus Ear exam: PRESENT: normal external ear exam Mouth exam: PRESENT: moist, tongue midline Neck exam: ABSENT: carotid bruit, JVD, lymphadenopathy, thyromegaly Respiratory exam: PRESENT: clear to auscultation bethany. ABSENT: rales, rhonchi, wheezes Cardiovascular exam: PRESENT: RRR. ABSENT: diastolic murmur, rubs, systolic murmur Pulses: PRESENT: normal dorsalis pedis pul Vascular exam: PRESENT: normal capillary refill GI/Abdominal exam: PRESENT: normal bowel sounds, soft. ABSENT: distended, guarding, mass, organolmegaly, rebound, tenderness Rectal exam: PRESENT: deferred Extremities exam: PRESENT: full ROM. ABSENT: calf tenderness, clubbing, pedal edema Neurological exam: PRESENT: alert, awake, oriented to person, oriented to place, oriented to time, oriented to situation, CN II-XII grossly intact. ABSENT: motor sensory deficit Psychiatric exam: PRESENT: appropriate affect, normal mood. ABSENT: homicidal ideation, suicidal ideation Skin exam: PRESENT: dry, intact, warm. ABSENT: cyanosis, rash Results Laboratory Results: 01/14/19 05:15 01/14/19 05:15 01/14/19 01/14/19 01/14/19 05:15 05:15 06:46 WBC 11.8 H RBC 3.91 Hgb 6.9 L Hct 23.7 L MCV 61 L MCH 17.7 L MCHC 29.1 L RDW 20.2 H Plt Count 254 Seg Neutrophils % 69.1 Lymphocytes % 15.6 Monocytes % 11.6 Eosinophils % 3.0 Basophils % 0.7 Absolute Neutrophils 8.1 Absolute Lymphocytes 1.8 Absolute Monocytes 1.4 Absolute Eosinophils 0.4 Absolute Basophils 0.1 Sodium 139.5 Potassium 3.4 L Chloride 110 H Carbon Dioxide 21 L Anion Gap 9 BUN 5 L Creatinine 0.58 Est GFR ( Amer) > 60 Est GFR (Non-Af Amer) > 60 Glucose 67 L Calcium 8.0 L Blood Type O POSITIVE Antibody Screen NEGATIVE Impressions: Abdomen/Pelvis CT 01/12/19 00:00 IMPRESSION: 1. Single dilated loop of small bowel in the mid pelvis with apparent transition to decompressed distal small bowel suggesting an early or partial small bowel obstruction. There is greater than expected free fluid in the pelvis likely related to the same etiology. 2. Mild periportal edema in the liver. Abdomen Ultrasound 01/12/19 00:48 IMPRESSION: Unremarkable study. KUB X-Ray 01/13/19 00:00 IMPRESSION: NO RADIOGRAPHIC EVIDENCE FOR ACUTE ABDOMINAL DISEASE. Contrast through the distribution of the colon. Qualifiers - * PATIENT BEING DISCHARGED WITH ANY OF THE FOLLOWING DIAGNOSIS: No Acute Heart Failure - Is this a Heart Failure Patient?: No Plan Time Spent: Greater than 30 Minutes
--- NOTE | 2019-01-14 08:41 | ADVANCED CARE ---
- Diagnosis (1) Partial small bowel obstruction Diagnosis Current: Yes (2) Anemia Diagnosis Current: Yes (3) Abdominal pain Diagnosis Current: Yes (4) Hyperglycemia Diagnosis Current: Yes Attendance: Myself patient and her Resuscitation Status: Full Code Discussion: Discussion about discharge needs. Patient be discharged home on Protonix 40 m p.o. daily and ferrous sulfate 305 g p.o. twice daily. Patient was educated if she was to have any constipation to start taking MiraLAX 70 g daily up to twice a day if needed. Patient will also follow-up with her primary care practitioner within 2 days with a stool sample for testing for occult blood. Patient will follow-up with [facility] to be medicated for her heavy menstrual cycles. Patient and family in agreement with plan of care. Care Planning Goals: 1-Protonix daily 2-ferrous sulfate 325 g p.o. twice daily 3-MiraLAX as needed 4-follow-up primary care stool for guaiac 5-follow-up with S[facility] CO[facility]ATOR Time Spent: 15 minutes
[2019-01-14 08:57] LABS: MEAN CORPUSCULAR VOLUME 62 fl (80-97)
[2019-01-14] MEDS: PANTOPRAZOLE SODIUM 40 MG VIAL IV SCH (10:19)
[2019-01-14 10:32] VITALS: BP 118/74
[2019-01-14 14:05] LABS: PATH REVIEW PATHOLOGIST REVIEWED
== END 2019-01-14 10:47 | disposition home or self-care (01) | DRG 390 ==
LOC: ER 21:55 → EH 01-12 07:09 → 2N 01-12 10:05
PROVIDERS: ADMIT Emergency Medicine; ATTEND Emergency Medicine
PROC: 0D9670Z Drainage of Stomach with Drainage Device, Via Natural or Artificial Opening (ICD-10-PCS; principal; 2019-01-12)
DX: K56.600 Partial intestinal obstruction, unspecified as to cause (principal); D50.9 Iron deficiency anemia, unspecified; N80.9 Endometriosis, unspecified; R73.9 Hyperglycemia, unspecified
CPT/HCPCS: 36415; 74018; 74177; 76705; 80048; 80053; 81001; 82607; 82728; 82746; 82962; 83036; 83540; 83550; 83690; 83735; 84100; 84703; 85025; 85045; 86850; 86900; 86901; 86920; 96361; 96372; 96374; 96375; 99285; J1170; J1439; J1885; J2405; J3490; J7030; J7050; S0119; S0164